=== PATIENT | female | born 1980 | race Caucasian/White ===

== ENCOUNTER 2023-03-21 17:57 | Emergency (ER) | payer OTHER ==
[~2023-03-21] VITALS: Ht 167.6 cm; Wt 68.0 kg
[2023-03-21 18:39] VITALS: BP 120/85; PULSE 89; RESP 18; TEMP 98; O2SAT 98
[2023-03-21] MEDS ORDERED: KETOROLAC 30 MG/ML VIAL ONE (20:46)
[2023-03-21] MEDS ORDERED: MECLIZINE 25 MG TAB ONE (20:47)
[2023-03-21] MEDS ORDERED: MECLIZINE 25 MG TAB PO ONE (20:50)
[2023-03-21] MEDS ORDERED: LID5T TP (20:55)
[2023-03-21] MEDS ORDERED: IBUP-2213 PO (20:55)
[2023-03-21] MEDS ORDERED: CYCL-711 PO (20:55)
[2023-03-21] MEDS ORDERED: ACET-2619 PO (20:55)
[2023-03-21] MEDS ORDERED: MECL-303 PO (20:56)
[2023-03-21] MEDS ORDERED: KETOROLAC 30 MG/ML VIAL IM ONE (21:00)
[2023-03-21 21:30] VITALS: BP 149/79; PULSE 75; RESP 20; TEMP 98.4; O2SAT 98
== END 2023-03-21 21:30 | disposition home or self-care (01) ==
LOC: MED 17:57
DX: S06.0X0A Concussion without loss of consciousness, initial encounter (principal); S16.1XXA Strain of muscle, fascia and tendon at neck level, initial encounter; R51.9 Headache, unspecified; H93.8X1 Other specified disorders of right ear; S00.81XA Abrasion of other part of head, initial encounter; I10 Essential (primary) hypertension; F17.200 Nicotine dependence, unspecified, uncomplicated; Z90.49 Acquired absence of other specified parts of digestive tract; Z98.890 Other specified postprocedural states; Z79.899 Other long term (current) drug therapy; Z79.1 Long term (current) use of non-steroidal anti-inflammatories (NSAID); V43.62XA Car passenger injured in collision with other type car in traffic accident, initial encounter; Y93.89 Activity, other specified; Y92.410 Unspecified street and highway as the place of occurrence of the external cause; Y99.8 Other external cause status
CPT/HCPCS: 70450; 70486; 72125; 96372; 99285; J1885; J8597